=== PATIENT | female | born 1995 | race Caucasian/White ===

== ENCOUNTER 2017-07-08 03:14 | Inpatient (IN) | payer BC, MEDICAID ==
[2017-07-08] MEDS ORDERED: Lactated Ringers 500 ML IV ONE (03:55)
[2017-07-08] MEDS ORDERED: Carboprost Tromethamine 250 MCG/1 ML Amp IM PRN (03:55)
[2017-07-08] MEDS ORDERED: Lidocaine 1% 30 ML SDV INJECT PRN (03:55)
[2017-07-08] MEDS ORDERED: Ondansetron 4 MG/2 ML SDV IV PRN (03:55)
[2017-07-08] MEDS ORDERED: Acetaminophen 325 MG Tab PO PRN ×2 (03:55→05:43)
[2017-07-08] MEDS ORDERED: Sodium Chloride 0.9% 10 ML Syringe FLUSH PRN (03:55)
[2017-07-08] MEDS ORDERED: Misoprostol 400 MCG (4 X 100 MCG TAB) RECTAL PRN ×2 (03:55→05:43)
[2017-07-08] MEDS ORDERED: Methylergonovine 0.2 MG/1 ML Amp IM PRN (03:55)
[2017-07-08] MEDS ORDERED: Lactated Ringers 1,000 ML IV SCH (04:00)
[2017-07-08] MEDS: Oxytocin/Normal Saline 30 UNIT/500 ML BAG IV SCH ×2 (05:08→07:20)
[2017-07-08] MEDS ORDERED: Simethicone 80 MG Tab.Chew PO PRN (05:43)
[2017-07-08] MEDS ORDERED: Benzocaine/Menthol 20%-0.5% Spray 56 GM Canister TOP PRN (05:43)
[2017-07-08] MEDS ORDERED: Ibuprofen 800 MG Tab PO PRN (05:43)
[2017-07-08] MEDS ORDERED: Docusate Sodium 100 MG Cap PO PRN (05:43)
--- NOTE | 2017-07-08 08:04 | HP ---
CHIEF COMPLAINT: Increased force and frequency of contractions. HISTORY OF PRESENT ILLNESS: A 22-year-old, 2, para 1-0-0-0 currently at 39 and 4/7 weeks' gestation based on last menstrual period and 16-week ultrasound, presented to Labor and Delivery after having about 2 hours of contractions at home reporting contractions every 2 minutes getting stronger and needing to breathe through them. She had not had any leakage of fluid or vaginal bleeding and movement had been good. No symptoms of preeclampsia. PAST MEDICAL HISTORY: Ear piercings, chickenpox as a child, history of loss of an due to a congenital heart defect, history of marijuana use, menarche at age 16 or 17 with cycles every 1 to 3 months and 10 days of flow. HISTORY: First delivery on 07/16/2015 at 39 and 6/7 weeks, delivered a male infant, namedByron. His weight was 3595 g. She had an intrathecal for anesthesia, and scores of 8 and 9. She only needed to push 5 times. Other stages of labor were not noted. Delivery was by Dr. Bustamante for myself. Byron did at 9 weeks of age due to complications intraoperatively during a procedure for his congenital heart disease. This ; blood type is O positive, antibody screen negative, rubella immune, syphilis serology nonreactive, hepatitis B negative, HIV negative, Gonorrhea and Chlamydia negative, hepatitis C negative, thyroid normal at 1.26, group B strep negative, glucose tolerance test normal, wet prep negative. She did have her flu vaccine just a week prior to delivery. She did receive her Tdap. She was treated with Macrobid for urinary tract infection in the second trimester. She also reported 2 bladder infections in the first trimester. FAMILY HISTORY: Mother with diverticulitis, father with gastroesophageal reflux disease, brother and sister are alive and well. Son had a supraventricular pulmonary stenosis with bilateral proximal pulmonary artery stenosis, supraventricular aortic stenosis, patent foramen ovale, and [id number] shunting. Her son also had anesthesia problems, really unclear if this was malignant hyperthermia versus his body needing cooling in order to prevent brain swelling because of the trauma of the surgery and resuscitation. SOCIAL HISTORY: She is single. Her significant other is VIKTOR Johnson. This is their 2nd child together. She has never smoked. No alcohol exposure this . No marijuana use in . They do currently live together. Doc takes online classes for getting her general and her business degree. VIKTOR ended up changing his career plans and is currently working at [employer] Neither of them smoke. MEDICATIONS: vitamin 1 daily. ALLERGIES: Sulfa. REVIEW OF SYSTEMS: As noted above. No headaches or blurry vision. No chest pain or shortness of breath. No nausea or vomiting. No diarrhea or constipation. No change in her swelling. No other acute concerns. PHYSICAL EXAMINATION: General: This is a healthy, well-appearing female, who appears her stated age. Vital Signs: Blood pressure initially 138/89, pulse of 80, temperature 98.2, next 125/82. HEENT: Unremarkable. Heart: Regular without obvious murmur. Lungs: Clear to auscultation bilaterally. Abdomen: Gravid. Soft and nontender. She is now . Fundus is firm and below the umbilicus. Genitourinary: Per nurse's report on admission, she was 5 cm dilated when she was admitted at 3:20 this morning. They got her up to go to the bathroom at about 4:50 and back in bed by 4:55, and she had spontaneous rupture of membranes and then delivered at 4:56 a viable female over intact perineum. I was not in attendance and inspection of the genitourinary area shows some labial swelling. She has a superficial anterior laceration that does not need any repair and a superficial first-degree laceration that is hemostatic and also does not need repair. Placenta was delivered intact, inspected and three-vessel cord noted. Extremities: No significant edema or erythema. LABORATORY DATA: Hemoglobin 11.6, platelets 192. ASSESSMENT: 1. 2, now para 2-0-0-1. 2. Delivered at 39 and 4/7 weeks' gestation dating by last menstrual period and 16-week ultrasound. 3. Status post precipitous labor and delivery attended by nurse. 4. Blood type O positive, rubella immune, and group B Streptococcus negative. 5. History of urinary tract infections in the 1st and 2nd trimesters. PLAN: The patient has been previously admitted to the hospital. Her delivery was performed without complications and without any anesthesia. She tolerated things very well and is doing well, currently . Anticipate that she will be discharged home in the next 1 to 2 days pending her clinical course. She will attempt , but does have a history of flat nipples, so dairy consultant will be beneficial. Her questions have been answered. [facility] /[id number] [place]
[2017-07-08] MEDS: Prenatal Multivitamin with Calcium/Folic Acid/Iron Tab PO SCH (09:08)
[2017-07-08] MEDS: Ferrous Sulfate 325 MG Tab PO SCH (09:09)
[2017-07-09] MEDS: Ferrous Sulfate 325 MG Tab PO SCH (08:49)
[2017-07-09] MEDS: Prenatal Multivitamin with Calcium/Folic Acid/Iron Tab PO SCH (08:49)
[2017-07-09 08:58] VITALS: BP 116/79
--- NOTE | 2017-07-09 13:29 | DEL ---
DATE: 07/08/2017 PREPROCEDURE DIAGNOSES: 1. 2, para 1-0-0-0. 2. A 39 and 4/7 weeks' gestation by last menstrual period and 16 week ultrasound. 3. History of loss of a child due to congenital heart disease. 4. Blood type O positive. Rubella immune. Group B strep negative. 5. History of urinary tract infections in 1st and 2nd trimesters. POSTPROCEDURE DIAGNOSES: 1. 2, now para 2-0-0-1. 2. A 39 and 4/7 weeks' gestation by last menstrual period and 16 week ultrasound. 3. History of loss of a child due to congenital heart disease. 4. Blood type O positive. Rubella immune. Group B strep negative. 5. History of urinary tract infections in 1st and 2nd trimesters. 6. Status post precipitous spontaneous vaginal delivery without complications. DELIVERY REPORT: Delivery was attended by Chaparrita Peres RN and Cindy Huff RN. Chaparrita being primary at the delivery. They report that the bed was intact and she delivered a viable female infant in the OA position over intact perineum. Baby was dried and stimulated and appropriately suctioned. Three- vessel umbilical cord was doubly clamped and cut and baby was doing well. Gentle cord traction was maintained and placenta had not delivered when I came into the room. When I came into the room, baby was up on mother's chest. [place] in color and with good cry. I donned gloves and gown and then placenta was delivered by gentle cord traction and concomitant uterine massage, inspected and intact, and 3 vessel cord verified. Labia and vagina inspected and she had a superficial anterior laceration that did not need any repair. She also has a small first-degree laceration posteriorly that was hemostatic and did not need repair. Blood loss was also slowing down at that time, and fundus was firm and below the umbilicus. ESTIMATED BLOOD LOSS: 350 mL. COMPLICATIONS: Precipitous delivery without MD in attendance. No complications of the delivery itself and it went quite smoothly. FINDINGS: Viable female infant. Weight 2995 g, 6 # 9 oz. scores are 8 and 9. DISPOSITION: Mother and baby to stay in the room at this time and initiate breast-feeding. [facility] /[id number] MTDMarco
--- NOTE | 2017-07-09 19:02 | DISCH ---
ADMISSION DIAGNOSIS: 1. 2. 39w4d gestation based on 16 wk ultrasound 3. Blood Type O pos 4. Rubella Immune 5. HIV Negative DISCHARGE DIAGNOSIS: 1. 2. 39w4d gestation based on 16 wk ultrasound 3. Blood Type O pos 4. Rubella Immune 5. HIV Negative 6. Status post vaginal delivery BRIEF HISTORY:A 22 yo female with above listed diagnoses, presented to Labor and Delivery after having 2 hours of contraction at home. See her admission history and physical for full details. During her course of she reported 2 bladder infection in first trimester and 1 UTI in the second trimester. HOSPITAL COURSE: After delivery the patient has been doing well. She is tolerating pain with P.O. medications. She is able to ambulate without difficulty. Tolerating a normal diet. Voiding and passing flatus. No chest pain or shortness of breath. Breast feeding and bonding is going well. No specific complaints. DISCHARGE CONDITION: Good. PHYSICAL EXAMINATION: Vital Signs: Temp 97.8, heart rate 70, blood pressure 116/79, respirations 20, and O2 sats 99%. Heart: Regular rate and rhythm without murmurs. Pulmonary: Clear bilaterally Abdomen: Soft. Fundus is palpated below the umbilicus and is firm. Extremities: Minimal edema and no tenderness. LABORATORY DATA: 07/09/17 - Hemoglobin 10.2, platelets 158. DISPOSITION: Discharged to home with family. MEDICATIONS: 1. Continue on multivitamin 2. Ferrous sulfate. 3. OTC Tylenol and Ibuprofen as needed for pain. 4. Colace 100mg BID PRN constipation INSTRUCTIONS: Pelvic rest for 6 weeks. Normal diet. The patient was instructed to follow up or call if any conditions of blurry vision, double visions, shortness of breath, heart palpitations, abdominal pain, vaginal bleeding or discharge. FOLLOWUP: Followup appointment is set to tomorrow for baby. She will need a 6 wk exam and contraception will be discussed at that time. All questions answered. She was instructed to call the clinic or the emergency room if the patient has any questions or concerns. History and physical done by Dr. Welch. Assessment and plan done by Dr. Welch. Dictation done on behalf of Dr. Welch. [facility] /[id number] Patient seen and examined with MARY BETH Whitehead. Agree with his note as scribed on my behalf. -oven baker 07/15/17 0122 MTDD
== END 2017-07-09 13:40 | disposition home or self-care (01) | DRG 560 ==
LOC: DL.OBCHECK 03:14 → DL.OB 03:33 → OBSVTOIN 04:56
PROVIDERS: ADMIT Family Medicine; ATTEND Family Medicine
PROC: 10E0XZZ Delivery of Products of Conception, External Approach (ICD-10-PCS; principal; 2017-07-08)
DX: O62.3 Precipitate labor (principal); O70.0 First degree perineal laceration during delivery; Z3A.40 40 weeks gestation of pregnancy; Z37.0 Single live birth
CPT/HCPCS: 36415; 85027; A9270-GY; J2590; J7120

== ENCOUNTER 2019-08-02 02:30 | Emergency (ER) | payer BC ==
[2019-08-02 02:48] VITALS: BP 129/77; PULSE 100
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
== END 2019-08-02 03:20 | disposition home or self-care (01) ==
LOC: DL.ED 02:30
DX: O9A.219 Injury, poisoning and certain other consequences of external causes complicating pregnancy, unspecified trimester (principal); S01.511A Laceration without foreign body of lip, initial encounter; F17.210 Nicotine dependence, cigarettes, uncomplicated; Z88.2 Allergy status to sulfonamides; Y04.2XXA Assault by strike against or bumped into by another person, initial encounter; Y92.89 Other specified places as the place of occurrence of the external cause
CPT/HCPCS: 99282

== ENCOUNTER 2020-05-27 03:49 | Emergency (ER) | payer BC ==
[2020-05-27 04:13] VITALS: BP 121/69; PULSE 78
--- NOTE | 2020-05-27 04:15 | EDM.PDOC ---
ED HPI GENERAL MEDICAL PROBLEM - General Chief Complaint: INFORMATION SERVICES TECH Problem Stated Complaint: HAD A MEDICATION ABOTION, LOSING BLOOD,LIGHTHEADED Time Seen by Provider: 05/27/20 04:13 Source of Information: Reports: Patient History Limitations: Reports: No Limitations - History of Present Illness INITIAL COMMENTS - FREE TEXT/NARRATIVE: had a medication and was bleeding alot earlier got worried so came here to get blood check. no other c/o - Related Data Allergies Allergy/AdvReac Type Severity Reaction Status Date / Time Sulfa (Sulfonamide Allergy Hives Verified 08/06/18 15:12 Antibiotics) Past Medical History - Past Health History Medical/Surgical History: Denies Medical/Surgical History HEENT History: Reports: None Cardiovascular History: Reports: None Respiratory History: Reports: None Gastrointestinal History: Reports: None Genitourinary History: Reports: None INFORMATION SERVICES TECH History: Reports: , Other (See Below) Other INFORMATION SERVICES TECH History: had third child today, no care with this , did not know that she was Musculoskeletal History: Reports: None Neurological History: Reports: None Psychiatric History: Reports: None Endocrine/Metabolic History: Reports: None Hematologic History: Reports: Anemia Immunologic History: Reports: None Oncologic (Cancer) History: Reports: None Dermatologic History: Reports: None - Infectious Disease History Infectious Disease History: Reports: Chicken Pox - Past Surgical History Head Surgeries/Procedures: Reports: None Social & Family History - Family History Family Medical History: Noncontributory Cardiac: Reports: Other (See Below) Other Cardiac Family History: Pt had son with congenital heart defects, at 9 weeks of age in August of 2015. - Caffeine Use Caffeine Use: Reports: Coffee ED ROS GENERAL - Review of Systems Review Of Systems: Comprehensive ROS is negative, except as noted in HPI. ED EXAM - Physical Exam Exam: See Below Exam Limited By: No Limitations General Appearance: Alert, WD/WN, No Apparent Distress Ears: Hearing Grossly Normal Throat/Mouth: Normal Voice, No Airway Compromise Head: Atraumatic Neck: Non-Tender, Full Range of Motion Respiratory/Chest: No Respiratory Distress Cardiovascular: Regular Rate, Rhythm GI/Abdominal Exam: Soft, Non-Tender Neurological: Alert, Oriented, Normal Cognition, Normal Gait, No Motor/Sensory Deficits Psychiatric: Normal Affect, Normal Mood Skin Exam: Warm, Dry, Normal Color Lymphatic: No Adenopathy Course - Vital Signs Last Recorded V/S: Last Vital Signs Temp 36.6 C 05/27/20 04:06 Pulse 78 05/27/20 04:06 Resp 18 05/27/20 04:06 BP 121/69 05/27/20 04:06 Pulse Ox 100 05/27/20 04:06 - Orders/Labs/Meds Labs: Laboratory Tests 05/27/20 05/27/20 Range/Units 04:22 04:22 WBC 8.0 (5.0-10.0) 10^3/uL RBC 4.34 (4.2-5.4) 10^6/uL Hgb 12.5 D (12.0-16.0) g/dL Hct 37.2 (37.0-47.0) % MCV 85.7 D (80-100) fL MCH 28.8 (27.0-34.0) pg MCHC 33.6 (33.0-35.0) g/dL Plt Count 190 (150-450) 10^3/uL Neut % (Auto) 75.3 H (42.2-75.2) % Lymph % (Auto) 16.8 L (20.5-50.1) % [place] % (Auto) 6.6 (2-8) % Eos % (Auto) 1.0 (1.0-3.0) % Baso % (Auto) 0.3 (0.0-1.0) % Sodium 136 (136-145) mmol/L Potassium 3.8 (3.5-5.1) mmol/L Chloride 100 (98-107) mmol/L Carbon Dioxide 27 (21-32) mmol/L Anion Gap 12.8 (7-13) mEq/L BUN 10 (7-18) mg/dL Creatinine 0.82 (0.55-1.02) mg/dL Est Cr Clr Drug Dosing 112.46 mL/min Estimated GFR (MDRD) > 60 BUN/Creatinine Ratio 12.2 (No establ ref range) Glucose 94 (74-99) mg/dL Calcium 8.6 (8.5-10.1) mg/dL Total Bilirubin 0.3 (0.2-1.0) mg/dL AST 12 L (15-37) U/L ALT 23 (14-59) U/L Alkaline Phosphatase 51 (46-116) U/L Total Protein 6.9 (6.4-8.2) g/dL Albumin 3.5 (3.4-5.0) g/dL Globulin 3.4 Albumin/Globulin Ratio 1.0 - Re-Assessments/Exams Free Text/Narrative Re-Assessment/Exam: 05/27/20 04:52 results discussed with pt who is feeling fine presently. Departure - Departure Time of Disposition: 04:52 Disposition: Home, Self-Care 01 Condition: Good Clinical Impression: Incomplete - Discharge Information Forms: ED Department Discharge Additional Instructions: 1) rest as much as possible 2) no bending lifting straining 3) recheck if there is any change or concern Sepsis Event Note (ED) - Focused Exam Vital Signs: Vital Signs Temp Pulse Resp BP Pulse Ox 05/27/20 04:06 36.6 C 78 18 121/69 100
[2020-05-27 04:47] LABS: ANION GAP 12.8 mEq/L (7-13); CHLORIDE,CL 100 mmol/L (98-107); SODIUM,NA 136 mmol/L (136-145)
== END 2020-05-27 04:57 | disposition home or self-care (01) ==
LOC: DL.ED 03:49
DX: O03.4 Incomplete spontaneous abortion without complication (principal); Z88.2 Allergy status to sulfonamides
CPT/HCPCS: 36415; 80053; 85025; 99283; 99284